=== PATIENT | male | born 2000 | race Asian ===

== ENCOUNTER 2022-04-10 19:22 | Inpatient (IN) | payer OTHER, SELFPAY ==
[2022-04-10 19:40] VITALS: BMI 27.3
[2022-04-10 21:10] VITALS: BP 123/58; PULSE 74; TEMP 36.6; O2SAT 100
[2022-04-10] MEDS: Mineral Oil/Petrolatum,White 106 GM Tube 1 APPL TOPICAL (21:48)
[2022-04-10] MEDS: QUEtiapine Fumarate 25 MG TABLET PO (21:48)
[2022-04-10] MEDS: risperiDONE 1 MG TABLET PO (21:48)
--- NOTE | 2022-04-11 00:36 | PC.ADMIT ---
admitted 04/10/22. was a referral from [facility]. nurse to nurse, collateral information obtained prior to admission. CV. dx: unspecified schizophrenia. reports + AH ''telling me to hurt others or myself'' when asked about safety to self and others stated ''I don't like hospitals but I feel safe here'' responded well to staff that patient had identified working with at [facility], ''I'm glad to see people here I know''
--- NOTE | 2022-04-11 01:02 | PC.ADMIT ---
Medication reconciliation done with a 24 hour Lora, verified was risperdal 1 mg po bid, seroquel 50 mg at HS. patient identified taking risperdal 1 mg daily only, 25 mg of seroquel daily (had reported he was instructed to take 25 mg po bid) also reported being on adderall xr 30 mg but was unable to verify with Lora. reports he also uses [facility] in [place] ''but they require a larger co pay'' [facility] closed at this time. reports regular use of marijuana. reports poor sleep. has noticeable dry skin/eczema-eucerin cream ordered. has not signed legal forms as patient was in bed.
[2022-04-11 08:45] VITALS: BP 138/75; PULSE 84; RESP 20; TEMP 36.3; O2SAT 100
[2022-04-11] MEDS: QUEtiapine Fumarate 25 MG TABLET PO (09:43)
[2022-04-11] MEDS: risperiDONE 1 MG TABLET PO (09:43)
[2022-04-11] MEDS: Nicotine 21 MG PATCH.TD24 TRANSDERMA (09:43)
[2022-04-11 10:00] LABS: Estimated Average Glucose 100 mg/dL; Hemoglobin A1c % 5.1 %
[2022-04-11 10:04] LABS: Cholesterol 132 mg/dL; HDL Cholesterol 39 mg/dL; LDL Cholesterol Calculated 85 mg/dl; Triglycerides 43 mg/dL
--- NOTE | 2022-04-11 11:49 | PM.IMCN ---
History of Present Illness Data of Consult Service Date: 04/11/22 Primary Care Provider: Unknown Physician HPI Reason for consult: Routine medical H&P. This is a 21 yo M who reports no PMH. He is admitted to M3. Medical consult requested for routine medical H&P per protocol. Patient is seen and examined in the exam room. They deny any medical complaints at this time. PMH/PSH -- denies both SH - reports tobacco use, reports prior EtOH use before starting seroquel; denies illicit substance use FH - denies Review of Systems Review of Systems: negative except HPI PMFSH Social History Household Members: Family Housing: House Do you presently have visiting nurse or other home services: No Patient Tobacco Use Status: Current everyday Tobacco user Tobacco use type: Cigarette Cigarette Packs Per Day: 0.5 Cigarettes Per Day: 10.0 Smoked in Last 30 Days: Yes e-Cigarette/Vaping Use: Never Used Patient Interested in Nicotine Replacement: Yes (requests gum) Second Hand Smoke Exposure: Yes Use of substances other than those prescribed or required for medical reasons: Yes Substance Use Type: Marijuana Substance Use Frequency: Daily Last Used Substance: Just Prior to Admission Currently Displaying Signs/Symptoms of Drug Intoxication Withdrawal: No Any prior treatment program specific to substance use: No Have you been hit, kicked, punched, or otherwise hurt by someone within the past year? If so, by whom?: No Do you feel safe in your current relationship?: No Current Relationship Is there a partner from a previous relationship who is making you feel unsafe now?: No Are you made to feel afraid or neglected: No Spiritual Healthcare Practices: none identified Orthodox Healthcare Practices: none identified Cultural Healthcare Practices: none identified Advance Directives: No Advance Directives Information Provided: No Do you have thoughts of harming others: None Do you have a plan to hurt others: No Plan Recently lost weight without trying: No How much weight loss: Not applicable Eating poorly because of decreased appetite: No Nutrition screen score: 0 Nutrition Risks: No Nutritional Risk Poor oral hygiene: No Meds Allergies Allergy/AdvReac Type Severity Reaction Status Date / Time No Known Allergies Allergy Unverified 08/11/20 19:05 [No Known Allergies*] Active Medications: Current Medications Acetaminophen (Acetaminophen 325 Mg Tablet) 650 mg PO Q6H PRN PRN Reason: Headache/Pain Mild Scale (1-3) Al Hydroxide/Mg Hydroxide (Magnesium Hydrox/Alum Hydrox 30 Ml Oral.Susp) 30 ml PO Q6H PRN PRN Reason: Heartburn/Nausea Amphetamine/Dextroamphetamine (Dextroamphetamine/Amphetamine Xr 10 Mg Cap.Er.24h) 30 mg PO DAILY [facility] Diphenhydramine HCl (Diphenhydramine Hcl 25 Mg Tablet) 50 mg PO Q4H PRN PRN Reason: agitation Haloperidol (Haloperidol 5 Mg Tablet) 5 mg PO Q4H PRN PRN Reason: agitation Hydroxyzine HCl (Hydroxyzine Hcl 25 Mg Tablet) 25 mg PO Q6H PRN PRN Reason: Anxiety Lorazepam (Lorazepam 1 Mg Tablet) 2 mg PO Q4H PRN PRN Reason: agitation Magnesium Hydroxide (Milk Of Magnesia 30 Ml Oral.Susp) 30 ml PO DAILY PRN PRN Reason: Constipation Multi-Ingred Cream/Lotion/Oil/Oint (Mineral Oil/Petrolatum,White 106 Gm Tube) 1 appl TOPICAL QID PRN; Protocol PRN Reason: eczema Last Admin: 04/10/22 21:48 Dose: 1 appl Documented by: Nicotine (Nicotine 21 Mg Patch.Td24) 21 mg TRANSDERMA DAILY [facility] Last Admin: 04/11/22 09:43 Dose: 21 mg Documented by: Nicotine Polacrilex (Nicotine Polacrilex 2 Mg Gum) 4 mg BUCCAL Q2H PRN PRN Reason: Nicotine Cravings Quetiapine Fumarate (Quetiapine Fumarate 25 Mg Tablet) 25 mg PO BID [facility] Last Admin: 04/11/22 09:43 Dose: 25 mg Documented by: Risperidone (Risperidone 1 Mg Tablet) 1 mg PO BID [facility] Last Admin: 04/11/22 09:43 Dose: 1 mg Documented by: Trazodone HCl (Trazodone Hcl 50 Mg Tablet) 50 mg PO BEDTIME PRN PRN Reason: Insomnia Home Medications Medication Instructions Recorded Confirmed Last Taken Type Adderall XR 30 mg PO DAILY 04/10/22 04/10/22 04/07/22 08:00 History quetiapine 25 mg tablet (Seroquel) 25 mg PO BID 04/10/22 04/10/22 04/09/22 21:00 History risperidone 1 mg tablet (Risperdal) 1 mg PO BID 04/10/22 04/10/22 04/09/22 21:00 History Physical Exam Vital Signs and Narrative: Vital Signs: Last Vital Signs Temp 97.4 F 04/11/22 08:45 Pulse 84 04/11/22 08:45 Resp 20 04/11/22 08:45 BP 138/75 04/11/22 08:45 Pulse Ox 100 04/11/22 08:45 BMI result Body Mass Index 27.3 Const: Other: General - no acute distress, appears comfortable Cardiovascular - regular rate and rhythm, S1-S2 Lungs - normal respiratory effort, clear to auscultation bilaterally, no wheezing Abdomen - soft, nontender, no rebound or guarding Extremities - no edema bilaterally Neuro - awake and alert, no focal deficits; cn 2-12 intact b/l Results Labs Labs: Laboratory Results - last 24 hr 04/11/22 04/11/22 09:16 09:16 Estimat Average Glucose 100 Hemoglobin A1c % 5.1 Triglycerides 43 Cholesterol 132 LDL Cholesterol, Calc 85 HDL Cholesterol 39 Assessment and Plan (1) Routine medical exam: Status: Acute Plan 21 yo M with no significant PMH, admitted to m3. Medical consultation sought for routine medical H&P. Patient has no active nor chronic medical issues. Patient has been counseled on age appropriate health maintenance as an outpatient. Continue care per primary team. Will sign off. Please re-consult if any issues arise.
[2022-04-11] MEDS: Nicotine Polacrilex 2 MG GUM 4 MG BUCCAL ×3 (13:20→23:07)
[2022-04-11] MEDS: hydrOXYzine HCL 25 MG TABLET PO (13:56)
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
[2022-04-11] MEDS: HaloperidoL 1 MG TABLET 3 MG PO (21:17)
[2022-04-11] MEDS: diphenhydrAMINE HCL 25 MG TABLET 50 MG PO (21:17)
[2022-04-11 21:19] VITALS: BP 143/65; PULSE 83; TEMP 36.8; O2SAT 98
[2022-04-12] MEDS: Mineral Oil/Petrolatum,White 106 GM Tube 1 APPL TOPICAL (06:03)
[2022-04-12 07:00] VITALS: BMI 28.3
[2022-04-12 08:15] VITALS: BP 130/60; PULSE 79; RESP 18; TEMP 36.6; O2SAT 100
[2022-04-12] MEDS: Nicotine 14 MG PATCH.TD24 TRANSDERMA (08:36)
[2022-04-12] MEDS: diphenhydrAMINE HCL 25 MG TABLET PO (08:37)
[2022-04-12] MEDS: HaloperidoL 1 MG TABLET 3 MG PO (08:37)
[2022-04-12] MEDS: Nicotine Polacrilex 2 MG GUM 4 MG BUCCAL (12:21)
--- NOTE | 2022-04-12 13:37 | P.PNPSI_ITS ---
Subjective Subjective Date of Service: 04/12/22 Reason For Visit: psychosis Interim History: pt calm, cooperative, denying all Sx. agreeable to increase haldol. doesn't want to be in the hospital any longer than he has to... concerned about what kind of a bill he will be facing after discharge. no other questions or concerns. per staff, anx/dep 3/10. denies SI/HI/AVH. napping. eating and sleeping well. Mental Status Exam Mental Status Exam Narrative: judy complexion, appropriately dressed and groomed. cooperative. no PMA/PMR. speech decr amount; nml rate, loudness, latency. thoughts linear. affect flexible. mood euthymic. denies SI/HI/AVH. Diagnostics Vital Signs (24Hr): Vital Signs - 24 hr 04/11/22 21:19 04/12/22 08:15 Temperature 98.2 F 97.9 F Pulse Rate 83 79 Respiratory Rate 18 Blood Pressure 143/65 H 130/60 Pulse Oximetry 98 100 BMI result Body Mass Index 28.3 Labs Labs: Laboratory Results - last 48 hr 04/11/22 04/11/22 09:16 09:16 Estimat Average Glucose 100 Hemoglobin A1c % 5.1 Triglycerides 43 Cholesterol 132 LDL Cholesterol, Calc 85 HDL Cholesterol 39 Medications Medications Current Medications Acetaminophen (Acetaminophen 325 Mg Tablet) 650 mg PO Q6H PRN PRN Reason: Headache/Pain Mild Scale (1-3) Al Hydroxide/Mg Hydroxide (Magnesium Hydrox/Alum Hydrox 30 Ml Oral.Susp) 30 ml PO Q6H PRN PRN Reason: Heartburn/Nausea Amphetamine/Dextroamphetamine (Dextroamphetamine/Amphetamine Xr 10 Mg Cap.Er.24h) 30 mg PO DAILY [facility] Last Admin: 04/11/22 16:02 Dose: Not Given Documented by: Benztropine Mesylate (Benztropine Mesylate 1 Mg Tablet) 1 mg PO Q6H PRN PRN Reason: EPS Diphenhydramine HCl (Diphenhydramine Hcl 25 Mg Tablet) 50 mg PO Q4H PRN PRN Reason: agitation Diphenhydramine HCl (Diphenhydramine Hcl 25 Mg Tablet) 25 mg PO DAILY [facility] Last Admin: 04/12/22 08:37 Dose: 25 mg Documented by: Diphenhydramine HCl (Diphenhydramine Hcl 25 Mg Tablet) 50 mg PO BEDTIME [facility] Last Admin: 04/11/22 21:17 Dose: 50 mg Documented by: Haloperidol (Haloperidol 5 Mg Tablet) 5 mg PO Q4H PRN PRN Reason: agitation Haloperidol (Haloperidol 1 Mg Tablet) 3 mg PO BID [facility] Last Admin: 04/12/22 08:37 Dose: 3 mg Documented by: Hydroxyzine HCl (Hydroxyzine Hcl 25 Mg Tablet) 25 mg PO Q6H PRN PRN Reason: Anxiety Last Admin: 04/11/22 13:56 Dose: 25 mg Documented by: Lorazepam (Lorazepam 1 Mg Tablet) 2 mg PO Q4H PRN PRN Reason: agitation Magnesium Hydroxide (Milk Of Magnesia 30 Ml Oral.Susp) 30 ml PO DAILY PRN PRN Reason: Constipation Multi-Ingred Cream/Lotion/Oil/Oint (Mineral Oil/Petrolatum,White 106 Gm Tube) 1 appl TOPICAL QID PRN; Protocol PRN Reason: eczema Last Admin: 04/12/22 06:03 Dose: 1 appl Documented by: Nicotine (Nicotine 14 Mg Patch.Td24) 14 mg TRANSDERMA DAILY [facility] Last Admin: 04/12/22 08:36 Dose: 14 mg Documented by: Nicotine Polacrilex (Nicotine Polacrilex 2 Mg Gum) 4 mg BUCCAL Q2H PRN PRN Reason: Nicotine Cravings Last Admin: 04/12/22 12:21 Dose: 4 mg Documented by: Trazodone HCl (Trazodone Hcl 50 Mg Tablet) 50 mg PO BEDTIME PRN PRN Reason: Insomnia Allergies Allergies Allergy/AdvReac Type Severity Reaction Status Date / Time No Known Allergies Allergy Unverified 08/11/20 19:05 [No Known Allergies*] Assessment & Plan Assessment & Plan (1) Schizophrenia, paranoid type: Status: Acute Code(s): F20.0 - Paranoid schizophrenia Plan DCed risperidone and seroquel 04/11. started haldol 3 mg BID with benadryl for EPS prophylaxis on 04/11. haldol dosing increased to 4 mg BID 04/12. I spent __20____ minutes with the patient and/or on the patient floor today, greater than?50% of which was spent counseling/coordinating care. Reason for contiued inpatient stay Substantial Risk for: harm to self, harm to others, inability to function and rapid decompensation
[2022-04-12 22:12] VITALS: BP 128/58; PULSE 70; RESP 16; TEMP 36.4; O2SAT 97
[2022-04-12] MEDS: diphenhydrAMINE HCL 25 MG TABLET 50 MG PO (22:21)
[2022-04-12] MEDS: HaloperidoL 1 MG TABLET 4 MG PO (22:21)
[2022-04-13 10:30] VITALS: BP 142/64; PULSE 90; RESP 18; TEMP 35.9; O2SAT 100
[2022-04-13] MEDS: Nicotine 14 MG PATCH.TD24 TRANSDERMA (10:48)
[2022-04-13] MEDS: HaloperidoL 1 MG TABLET 4 MG PO (10:49)
[2022-04-13] MEDS: diphenhydrAMINE HCL 25 MG TABLET PO (10:50)
[2022-04-13] MEDS: LORazepam 2 MG/ML VIAL 1 MG IM (12:22)
[2022-04-13] MEDS: Benztropine Mesylate 2 MG/2 ML VIAL 1 MG IM (12:23)
--- NOTE | 2022-04-13 12:35 | PC.NURSE ---
At approximately 12:15 patient presented unable to retract his tongue. Doctor Cristopher Santamaria was notified and ordered IM ativan 1 mg and IM 1 mg cogentin. Patient received IMs as ordered. Vital signs were T: 97.9, HR: 87, RR: 18, BP: 155/86. Breathing was even and non labored. Patient reported That was very scary . Shortly after patient reported almost complete relief of symptoms. Patient able to eat and drink. Patient educated on symptoms to report to RN.
--- NOTE | 2022-04-13 13:17 | PC.NURSE ---
Patient reports that all the symptoms are gone now since receiving IMs as ordered for inability to retract tongue. Patient is able to eat and drink. Respirations are even and non labored. Vital signs are stable at HR: 86, O2: 100%, RR: 17, BP: 137/87. Education was reinforced with patient of signs and symptoms to report to RN.
--- NOTE | 2022-04-13 14:43 | PC.NURSE ---
Patient continues to report that all the symptoms are gone now since receiving IMs as ordered for inability to retract tongue. Patient continues to be able to eat and drink. Respirations are even and non labored. Vital signs are stable at HR: 79, O2: 99%, RR: 17, BP: 137/63. Education was reinforced with patient of signs and symptoms to report to Nurse.
--- NOTE | 2022-04-13 16:02 | P.PNPSI_ITS ---
Subjective Subjective Date of Service: 04/13/22 Reason For Visit: psychosis Interim History: pt calm, cooperative. discuss haldol dosing and potential side effects. pt notes he has h/o dystonia with seroquel or risperidone. he then observes perhaps his tongue is feeling stuck and he may be having a dystonic rxn now... he was referred to nursing to start cogentin PO. it was observed he was unable to retract his tongue and IM ativan and cogentin were given with good effect. pt agreed to have cogentin added to regimen, 1 mg BID. planned to keep haldol at 4 BID for time being. no signs of psychosis today. per staff, dep 0. anx 01/04. brighter. attending groups. walking the halls listening to headphones. slept well. some paranoia about roommate staring at him while he slept. also, mentioned in yesterday's group being followed by FBI in the present. Mental Status Exam Mental Status Exam Narrative: judy complexion, appropriately dressed and groomed. cooperative. no PMA/PMR. speech nml amount, rate, loudness, latency. thoughts linear. affect flexible. mood euthymic. no SI/HI/AVH expressed. Diagnostics Vital Signs (24Hr): Vital Signs - 24 hr 04/12/22 22:12 04/13/22 10:30 Temperature 97.5 F 96.7 F L Pulse Rate 70 90 Respiratory Rate 16 18 Blood Pressure 128/58 L 142/64 H Pulse Oximetry 97 100 BMI result Body Mass Index 28.3 Medications Medications Current Medications Acetaminophen (Acetaminophen 325 Mg Tablet) 650 mg PO Q6H PRN PRN Reason: Headache/Pain Mild Scale (1-3) Al Hydroxide/Mg Hydroxide (Magnesium Hydrox/Alum Hydrox 30 Ml Oral.Susp) 30 ml PO Q6H PRN PRN Reason: Heartburn/Nausea Amphetamine/Dextroamphetamine (Dextroamphetamine/Amphetamine Xr 10 Mg Cap.Er.24h) 30 mg PO DAILY [facility] Last Admin: 04/11/22 16:02 Dose: Not Given Documented by: Benztropine Mesylate (Benztropine Mesylate 1 Mg Tablet) 1 mg PO Q6H PRN PRN Reason: EPS Benztropine Mesylate (Benztropine Mesylate 1 Mg Tablet) 1 mg PO BID [facility] Last Admin: 04/13/22 12:25 Dose: Not Given Documented by: Diphenhydramine HCl (Diphenhydramine Hcl 25 Mg Tablet) 50 mg PO Q4H PRN PRN Reason: agitation Diphenhydramine HCl (Diphenhydramine Hcl 25 Mg Tablet) 25 mg PO DAILY [facility] Last Admin: 04/13/22 10:50 Dose: 25 mg Documented by: Diphenhydramine HCl (Diphenhydramine Hcl 25 Mg Tablet) 50 mg PO BEDTIME [facility] Last Admin: 04/12/22 22:21 Dose: 50 mg Documented by: Haloperidol (Haloperidol 5 Mg Tablet) 5 mg PO BID [facility] Haloperidol (Haloperidol 1 Mg Tablet) 4 mg PO Q4H PRN PRN Reason: agitation Hydroxyzine HCl (Hydroxyzine Hcl 25 Mg Tablet) 25 mg PO Q6H PRN PRN Reason: Anxiety Last Admin: 04/11/22 13:56 Dose: 25 mg Documented by: Lorazepam (Lorazepam 1 Mg Tablet) 2 mg PO Q4H PRN PRN Reason: agitation Magnesium Hydroxide (Milk Of Magnesia 30 Ml Oral.Susp) 30 ml PO DAILY PRN PRN Reason: Constipation Multi-Ingred Cream/Lotion/Oil/Oint (Mineral Oil/Petrolatum,White 106 Gm Tube) 1 appl TOPICAL QID PRN; Protocol PRN Reason: eczema Last Admin: 04/12/22 06:03 Dose: 1 appl Documented by: Nicotine (Nicotine 14 Mg Patch.Td24) 14 mg TRANSDERMA DAILY [facility] Last Admin: 04/13/22 10:48 Dose: 14 mg Documented by: Nicotine Polacrilex (Nicotine Polacrilex 2 Mg Gum) 4 mg BUCCAL Q2H PRN PRN Reason: Nicotine Cravings Last Admin: 04/12/22 12:21 Dose: 4 mg Documented by: Trazodone HCl (Trazodone Hcl 50 Mg Tablet) 50 mg PO BEDTIME PRN PRN Reason: Insomnia Allergies Allergies Allergy/AdvReac Type Severity Reaction Status Date / Time No Known Allergies Allergy Unverified 08/11/20 19:05 [No Known Allergies*] Assessment & Plan Assessment & Plan (1) Schizophrenia, paranoid type: Status: Acute Code(s): F20.0 - Paranoid schizophrenia Plan DCed risperidone and seroquel 04/11. started haldol 3 mg BID with benadryl for EPS prophylaxis on 04/11. haldol dosing increased to 4 mg BID 04/12. appeared to develop dystonia involving tongue this morning, given ativan 1 mg and cogentin 1 mg to good effect. benadryl DCed at pt request, cogentin 1 BID started. stabilize. planning for discharge early next week. I spent ___35___ minutes with the patient and/or on the patient floor today, greater than?50% of which was spent counseling/coordinating care. Reason for contiued inpatient stay Substantial Risk for: harm to self, harm to others, inability to function and rapid decompensation
[2022-04-13] MEDS: Mineral Oil/Petrolatum,White 106 GM Tube 1 APPL TOPICAL (17:55)
[2022-04-13 18:00] VITALS: BP 123/58; PULSE 70; RESP 16; TEMP 36.7; O2SAT 98
[2022-04-13] MEDS: diphenhydrAMINE HCL 25 MG TABLET 50 MG PO (21:07)
[2022-04-13] MEDS: Benztropine Mesylate 1 MG TABLET PO (21:07)
[2022-04-13] MEDS: HaloperidoL 5 MG TABLET PO (21:07)
[2022-04-14 09:12] VITALS: BP 137/62; PULSE 85; RESP 18; TEMP 36.2; O2SAT 100
[2022-04-14] MEDS: Benztropine Mesylate 1 MG TABLET PO ×2 (09:28→21:21)
[2022-04-14] MEDS: HaloperidoL 5 MG TABLET PO ×2 (09:28→21:21)
[2022-04-14] MEDS: Nicotine 14 MG PATCH.TD24 TRANSDERMA (09:28)
[2022-04-14] MEDS: diphenhydrAMINE HCL 25 MG TABLET PO (09:28)
[2022-04-14] MEDS: Nicotine Polacrilex 2 MG GUM 4 MG BUCCAL (12:29)
--- NOTE | 2022-04-14 15:47 | HO.PSYCHPN ---
Subjective Subjective Date of Service: 04/14/22 Reason For Visit: psychosis Subjective Notes: 3 Day Interim History: overall reports things are going well. Did have a dystonic reaction to Haldol yesterday but felt positive that Cogentin has been ordered and he has not experienced symptoms since. Reports that Haldol has been helpful regarding auditory hallucinations and suicidal thoughts. Reports not having any within the last day or so. Reports feeling overall less overwhelmed and anxious. Mood brighter. Sleep okay. Hopeful that he can have treaters when discharged and an in person therapist. Reports preferring this over zoom. three-day notice expires Saturday04/18/2022 Medication Compliance: Yes Side effects from medications: No (cogentin preventing same) Attending Groups: Yes Review of Systems Acute medical concerns: No Review of Systems Review of Systems Yes all other systems are reviewed and are negative Mental Status Exam Mental Status Exam Narrative: pleasant and engaged. Organized. Euthymic. No SI. No HI. No psychosis. Insight and judgment good Diagnostics Vital Signs (24Hr): Vital Signs - 24 hr 04/13/22 18:00 04/14/22 09:12 Temperature 98.1 F 97.2 F Pulse Rate 70 85 Respiratory Rate 16 18 Blood Pressure 123/58 L 137/62 Pulse Oximetry 98 100 BMI result Body Mass Index 28.3 Medications Medications Current Medications Acetaminophen (Acetaminophen 325 Mg Tablet) 650 mg PO Q6H PRN PRN Reason: Headache/Pain Mild Scale (1-3) Al Hydroxide/Mg Hydroxide (Magnesium Hydrox/Alum Hydrox 30 Ml Oral.Susp) 30 ml PO Q6H PRN PRN Reason: Heartburn/Nausea Amphetamine/Dextroamphetamine (Dextroamphetamine/Amphetamine Xr 10 Mg Cap.Er.24h) 30 mg PO DAILY [facility] Last Admin: 04/11/22 16:02 Dose: Not Given Documented by: Benztropine Mesylate (Benztropine Mesylate 1 Mg Tablet) 1 mg PO Q6H PRN PRN Reason: EPS Benztropine Mesylate (Benztropine Mesylate 1 Mg Tablet) 1 mg PO BID [facility] Last Admin: 04/14/22 09:28 Dose: 1 mg Documented by: Diphenhydramine HCl (Diphenhydramine Hcl 25 Mg Tablet) 50 mg PO Q4H PRN PRN Reason: agitation Diphenhydramine HCl (Diphenhydramine Hcl 25 Mg Tablet) 25 mg PO DAILY [facility] Last Admin: 04/14/22 09:28 Dose: 25 mg Documented by: Diphenhydramine HCl (Diphenhydramine Hcl 25 Mg Tablet) 50 mg PO BEDTIME [facility] Last Admin: 04/13/22 21:07 Dose: 50 mg Documented by: Haloperidol (Haloperidol 5 Mg Tablet) 5 mg PO BID [facility] Last Admin: 04/14/22 09:28 Dose: 5 mg Documented by: Haloperidol (Haloperidol 1 Mg Tablet) 4 mg PO Q4H PRN PRN Reason: agitation Hydroxyzine HCl (Hydroxyzine Hcl 25 Mg Tablet) 25 mg PO Q6H PRN PRN Reason: Anxiety Last Admin: 04/11/22 13:56 Dose: 25 mg Documented by: Lorazepam (Lorazepam 1 Mg Tablet) 2 mg PO Q4H PRN PRN Reason: agitation Magnesium Hydroxide (Milk Of Magnesia 30 Ml Oral.Susp) 30 ml PO DAILY PRN PRN Reason: Constipation Multi-Ingred Cream/Lotion/Oil/Oint (Mineral Oil/Petrolatum,White 106 Gm Tube) 1 appl TOPICAL QID PRN; Protocol PRN Reason: eczema Last Admin: 04/13/22 17:55 Dose: 1 appl Documented by: Nicotine (Nicotine 14 Mg Patch.Td24) 14 mg TRANSDERMA DAILY [facility] Last Admin: 04/14/22 09:28 Dose: 14 mg Documented by: Nicotine Polacrilex (Nicotine Polacrilex 2 Mg Gum) 4 mg BUCCAL Q2H PRN PRN Reason: Nicotine Cravings Last Admin: 04/14/22 12:29 Dose: 4 mg Documented by: Trazodone HCl (Trazodone Hcl 50 Mg Tablet) 50 mg PO BEDTIME PRN PRN Reason: Insomnia Allergies Allergies Allergy/AdvReac Type Severity Reaction Status Date / Time No Known Allergies Allergy Unverified 08/11/20 19:05 [No Known Allergies*] Assessment & Plan Assessment & Plan (1) Schizophrenia, paranoid type: Status: Acute Code(s): F20.0 - Paranoid schizophrenia Plan DCed risperidone and seroquel 04/11. started haldol 3 mg BID with benadryl for EPS prophylaxis on 04/11. haldol dosing increased to 4 mg BID 04/12. appeared to develop dystonia involving tongue this morning, given ativan 1 mg and cogentin 1 mg to good effect. benadryl DCed at pt request, cogentin 1 BID started. stabilize. planning for discharge early next week. 04/14/2022: No changes to primary team treatment plan. Three-day notice expires Saturday04/18/2022 I spent minutes with the patient and/or on the patient floor today, greater than?50% of which was spent counseling/coordinating care. Reason for contiued inpatient stay Substantial Risk for: harm to self
[2022-04-14] MEDS: Mineral Oil/Petrolatum,White 106 GM Tube 1 APPL TOPICAL (16:07)
[2022-04-14 20:57] VITALS: BP 120/54; PULSE 67; RESP 16; TEMP 36.3; O2SAT 98
[2022-04-14] MEDS: diphenhydrAMINE HCL 25 MG TABLET 50 MG PO (21:21)
[2022-04-15] MEDS: Benztropine Mesylate 1 MG TABLET PO ×2 (08:19→22:22)
[2022-04-15] MEDS: diphenhydrAMINE HCL 25 MG TABLET PO (08:19)
[2022-04-15] MEDS: HaloperidoL 5 MG TABLET PO ×2 (08:20→22:22)
[2022-04-15] MEDS: Nicotine 14 MG PATCH.TD24 TRANSDERMA (08:25)
[2022-04-15 08:30] VITALS: BP 135/57; PULSE 69; RESP 18; TEMP 36.6; O2SAT 97
--- NOTE | 2022-04-15 15:24 | HO.PSYCHPN ---
Subjective Subjective Date of Service: 04/15/22 Reason For Visit: psychosis Interim History: Continues to report that things are going well. No side effects over the last 2 days. No psychosis. Feels that mood is good. Sleep energy and appetite okay. Remains hopeful he can have treaters when discharged and an in person therapist. Reports preferring this over zoom. three-day notice expires Saturday04/18/2022 Medication Compliance: Yes Side effects from medications: No Attending Groups: Yes Review of Systems Acute medical concerns: No Review of Systems Review of Systems Yes all other systems are reviewed and are negative Mental Status Exam Mental Status Exam Narrative: pleasant and engaged. Organized. Euthymic. No SI. No HI. No psychosis. Insight and judgment good Diagnostics Vital Signs (24Hr): Vital Signs - 24 hr 04/14/22 20:57 04/15/22 08:30 Temperature 97.4 F 97.8 F Pulse Rate 67 69 Respiratory Rate 16 18 Blood Pressure 120/54 L 135/57 L Pulse Oximetry 98 97 BMI result Body Mass Index 28.3 Medications Medications Current Medications Acetaminophen (Acetaminophen 325 Mg Tablet) 650 mg PO Q6H PRN PRN Reason: Headache/Pain Mild Scale (1-3) Al Hydroxide/Mg Hydroxide (Magnesium Hydrox/Alum Hydrox 30 Ml Oral.Susp) 30 ml PO Q6H PRN PRN Reason: Heartburn/Nausea Amphetamine/Dextroamphetamine (Dextroamphetamine/Amphetamine Xr 10 Mg Cap.Er.24h) 30 mg PO DAILY [facility] Last Admin: 04/11/22 16:02 Dose: Not Given Documented by: Benztropine Mesylate (Benztropine Mesylate 1 Mg Tablet) 1 mg PO Q6H PRN PRN Reason: EPS Benztropine Mesylate (Benztropine Mesylate 1 Mg Tablet) 1 mg PO BID [facility] Last Admin: 04/15/22 08:19 Dose: 1 mg Documented by: Diphenhydramine HCl (Diphenhydramine Hcl 25 Mg Tablet) 50 mg PO Q4H PRN PRN Reason: agitation Diphenhydramine HCl (Diphenhydramine Hcl 25 Mg Tablet) 25 mg PO DAILY [facility] Last Admin: 04/15/22 08:19 Dose: 25 mg Documented by: Diphenhydramine HCl (Diphenhydramine Hcl 25 Mg Tablet) 50 mg PO BEDTIME [facility] Last Admin: 04/14/22 21:21 Dose: 50 mg Documented by: Haloperidol (Haloperidol 5 Mg Tablet) 5 mg PO BID [facility] Last Admin: 04/15/22 08:20 Dose: 5 mg Documented by: Haloperidol (Haloperidol 1 Mg Tablet) 4 mg PO Q4H PRN PRN Reason: agitation Hydroxyzine HCl (Hydroxyzine Hcl 25 Mg Tablet) 25 mg PO Q6H PRN PRN Reason: Anxiety Last Admin: 04/11/22 13:56 Dose: 25 mg Documented by: Lorazepam (Lorazepam 1 Mg Tablet) 2 mg PO Q4H PRN PRN Reason: agitation Magnesium Hydroxide (Milk Of Magnesia 30 Ml Oral.Susp) 30 ml PO DAILY PRN PRN Reason: Constipation Multi-Ingred Cream/Lotion/Oil/Oint (Mineral Oil/Petrolatum,White 106 Gm Tube) 1 appl TOPICAL QID PRN; Protocol PRN Reason: eczema Last Admin: 04/14/22 16:07 Dose: 1 appl Documented by: Nicotine (Nicotine 14 Mg Patch.Td24) 14 mg TRANSDERMA DAILY [facility] Last Admin: 04/15/22 08:25 Dose: 14 mg Documented by: Nicotine Polacrilex (Nicotine Polacrilex 2 Mg Gum) 4 mg BUCCAL Q2H PRN PRN Reason: Nicotine Cravings Last Admin: 04/14/22 12:29 Dose: 4 mg Documented by: Trazodone HCl (Trazodone Hcl 50 Mg Tablet) 50 mg PO BEDTIME PRN PRN Reason: Insomnia Allergies Allergies Allergy/AdvReac Type Severity Reaction Status Date / Time No Known Allergies Allergy Unverified 08/11/20 19:05 [No Known Allergies*] Assessment & Plan Assessment & Plan (1) Schizophrenia, paranoid type: Status: Acute Code(s): F20.0 - Paranoid schizophrenia Plan DCed risperidone and seroquel 04/11. started haldol 3 mg BID with benadryl for EPS prophylaxis on 04/11. haldol dosing increased to 4 mg BID 04/12. appeared to develop dystonia involving tongue this morning, given ativan 1 mg and cogentin 1 mg to good effect. benadryl DCed at pt request, cogentin 1 BID started. stabilize. planning for discharge early next week. 04/15/2022: No changes to primary team treatment plan. Three-day notice expires Saturday04/18/2022 I spent minutes with the patient and/or on the patient floor today, greater than?50% of which was spent counseling/coordinating care. Reason for contiued inpatient stay Substantial Risk for: rapid decompensation
[2022-04-15 22:12] VITALS: BP 123/60; PULSE 73; RESP 16; TEMP 36.6; O2SAT 97
[2022-04-15] MEDS: diphenhydrAMINE HCL 25 MG TABLET 50 MG PO (22:22)
[2022-04-16 08:12] VITALS: BP 125/87; PULSE 92; RESP 17; TEMP 36.7; O2SAT 100
[2022-04-16] MEDS: diphenhydrAMINE HCL 25 MG TABLET PO (08:16)
[2022-04-16] MEDS: Nicotine 14 MG PATCH.TD24 TRANSDERMA (08:16)
[2022-04-16] MEDS: HaloperidoL 5 MG TABLET PO ×2 (08:16→21:33)
[2022-04-16] MEDS: Benztropine Mesylate 1 MG TABLET PO ×2 (08:16→21:33)
[2022-04-16] MEDS: Mineral Oil/Petrolatum,White 106 GM Tube 1 APPL TOPICAL (13:10)
--- NOTE | 2022-04-16 15:44 | P.PNPSI_ITS ---
Subjective Subjective Date of Service: 04/16/22 Reason For Visit: psychosis Interim History: calm, cooperative, reasonably well related, some thought disorganization apparent. happy to hear he will be discharged tomorrow. states he is sleeping well. mood is unpredictable. states, i know i'll be safe at home with my parents. denies any further dystonic rxns or other side effects. denies SI/HI/AVH. sates he is not concerned about the FBI, he figures if they wanted to interview him they would have just done it by now. per staff, easily engaged. no SI/HI/AVH. no delusions. improved range of affect. sleeping and eating well. D/C tomorrow. Mental Status Exam Mental Status Exam Narrative: judy complexion, appropriately dressed and groomed. cooperative. no PMA/PMR. speech nml amount, rate, loudness, latency. thoughts mildly disorganized. affect flexible. mood unpredictable. no SI/HI/AVH. denies paranoid thoughts about the FBI. Diagnostics Vital Signs (24Hr): Vital Signs - 24 hr 04/15/22 22:12 04/16/22 08:12 Temperature 97.8 F 98.1 F Pulse Rate 73 92 Respiratory Rate 16 17 Blood Pressure 123/60 125/87 Pulse Oximetry 97 100 BMI result Body Mass Index 28.3 Medications Medications Current Medications Acetaminophen (Acetaminophen 325 Mg Tablet) 650 mg PO Q6H PRN PRN Reason: Headache/Pain Mild Scale (1-3) Al Hydroxide/Mg Hydroxide (Magnesium Hydrox/Alum Hydrox 30 Ml Oral.Susp) 30 ml PO Q6H PRN PRN Reason: Heartburn/Nausea Amphetamine/Dextroamphetamine (Dextroamphetamine/Amphetamine Xr 10 Mg Cap.Er.24h) 30 mg PO DAILY [facility] Last Admin: 04/11/22 16:02 Dose: Not Given Documented by: Benztropine Mesylate (Benztropine Mesylate 1 Mg Tablet) 1 mg PO Q6H PRN PRN Reason: EPS Benztropine Mesylate (Benztropine Mesylate 1 Mg Tablet) 1 mg PO BID [facility] Last Admin: 04/16/22 08:16 Dose: 1 mg Documented by: Diphenhydramine HCl (Diphenhydramine Hcl 25 Mg Tablet) 50 mg PO Q4H PRN PRN Reason: agitation Haloperidol (Haloperidol 5 Mg Tablet) 5 mg PO BID [facility] Last Admin: 04/16/22 08:16 Dose: 5 mg Documented by: Haloperidol (Haloperidol 1 Mg Tablet) 4 mg PO Q4H PRN PRN Reason: agitation Hydroxyzine HCl (Hydroxyzine Hcl 25 Mg Tablet) 25 mg PO Q6H PRN PRN Reason: Anxiety Last Admin: 04/11/22 13:56 Dose: 25 mg Documented by: Magnesium Hydroxide (Milk Of Magnesia 30 Ml Oral.Susp) 30 ml PO DAILY PRN PRN Reason: Constipation Multi-Ingred Cream/Lotion/Oil/Oint (Mineral Oil/Petrolatum,White 106 Gm Tube) 1 appl TOPICAL QID PRN; Protocol PRN Reason: eczema Last Admin: 04/16/22 13:10 Dose: 1 appl Documented by: Nicotine (Nicotine 14 Mg Patch.Td24) 14 mg TRANSDERMA DAILY [facility] Last Admin: 04/16/22 08:16 Dose: 14 mg Documented by: Nicotine Polacrilex (Nicotine Polacrilex 2 Mg Gum) 4 mg BUCCAL Q2H PRN PRN Reason: Nicotine Cravings Last Admin: 04/14/22 12:29 Dose: 4 mg Documented by: Trazodone HCl (Trazodone Hcl 50 Mg Tablet) 50 mg PO BEDTIME PRN PRN Reason: Insomnia Allergies Allergies Allergy/AdvReac Type Severity Reaction Status Date / Time No Known Allergies Allergy Unverified 08/11/20 19:05 [No Known Allergies*] Assessment & Plan Assessment & Plan (1) Schizophrenia, paranoid type: Status: Acute Code(s): F20.0 - Paranoid schizophrenia Plan DCed risperidone and seroquel 04/11. started haldol 3 mg BID with benadryl for EPS prophylaxis on 04/11. haldol dosing increased to 4 mg BID 04/12. appeared to develop dystonia involving tongue 04/13, given ativan 1 mg and cogentin 1 mg to good effect. benadryl DCed at pt request, cogentin 1 BID started. stabilize. planning for discharge early next week. 04/15/2022: No changes to primary team treatment plan. Three-day notice expires Saturday04/18/2022. 04/16: stable, improved. DC tomorrow. I spent ___20___ minutes with the patient and/or on the patient floor today, greater than?50% of which was spent counseling/coordinating care. Reason for contiued inpatient stay Substantial Risk for: harm to self, harm to others, inability to function and rapid decompensation
[2022-04-16 20:35] VITALS: BP 134/61; PULSE 71; RESP 18; TEMP 36.2; O2SAT 99
[2022-04-17] MEDS: Benztropine Mesylate 1 MG TABLET PO (08:16)
[2022-04-17] MEDS: HaloperidoL 5 MG TABLET PO (08:16)
[2022-04-17 09:00] VITALS: BP 127/60; PULSE 63; RESP 18; TEMP 36.4; O2SAT 100
[2022-04-17] MEDS: Mineral Oil/Petrolatum,White 106 GM Tube 1 APPL TOPICAL (09:52)
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
--- NOTE | 2022-04-17 10:40 | PC.NURSE ---
Patient alert, oriented. Reviewed discharge instructions, medications w/ patient. Patient verbalized understanding of instructions. Patient denied SI/HI, patient denies AH/VH. Patient denied any concerns or questions, reports he is eager to get home and 'catch up with social stuff.' Patient states brother will be coming to drive him home, states he is currently living with his parents.
== END 2022-04-17 10:59 | disposition home or self-care (01) | DRG 750 ==
PROVIDERS: Psychiatry & Neurology Psychiatry; Admitting Provider Psychiatry & Neurology Psychiatry; Visit Provider Psychiatry & Neurology Psychiatry
DX: F20.0 Paranoid schizophrenia (principal); R45.851 Suicidal ideations; F17.210 Nicotine dependence, cigarettes, uncomplicated; Z71.6 Tobacco abuse counseling; Z79.899 Other long term (current) drug therapy
CPT/HCPCS: 36415; 80061; 83036; J0515; J2060; Q0163

== ENCOUNTER 2023-09-17 15:28 | Inpatient (IN) | payer OTHER, SELFPAY ==
--- OUTSIDE RECORDS SUMMARY | 2023-09-17 14:32 | XMS_ITS | Continuity of Care Document ---
Author Name Unknown Organization [facility] ter Address [address] [place] [id number] Care Team Providers Care Silk Soaker Name Role Phone Emile Cuellar MD Primary Care Physician Encounter [facility] Date(s): 04/08/22 - 04/10/[address] [address]- Discharge Disposition: Transfer to [facility] Facility Attending Physician: Lavelle Coleman DO Admitting Physician: Lavelle Coleman DO Referring Physician: Not on Staff, Referring MD Allergies, Adverse Reactions, Alerts No Known Allergies Medications QUEtiapine 25 mg oral tablet 50 mg, 2, tablet, By Mouth, Daily at bedtime, # 120 tablet, Refills 0, Maintenance, 04/08/22 7:16:00 EDT, Partial fill upon patient request if the prescription is for a schedule II opioid drug. Start Date: 04/08/22 Status: Ordered RisperDAL 1 mg oral tablet 1 mg, 1, tablet, By Mouth, 2 times a day, # 60 tablet, Refills 0, Tot. Refills 0, Maintenance, 04/26/20 8:28:00 EDT, Print Requisition Start Date: 04/26/20 Status: Ordered Problem List Condition Effective Dates Status Health Status Inform ant Asthma(Confirmed) Active Atopic dermatitis(Confirmed) Active Vital Signs Most recent to oldest [Reference Range]: 1 2 3 Oxygen Saturation [94-100 %] 100 % (04/10/22 2:02 PM) 100 % (04/10/22 6:30 AM) 99 % (04/09/22 8:28 PM) Pulse Rate [55-90 bpm] 64 bpm (04/10/22 2:02 PM) 81 bpm (04/10/22 6:30 AM) 75 bpm (04/09/22 8:28 PM) Blood Pressure [90-138/55-84 mm Hg] 132/50mm Hg (5/17/22 2:02 PM) 115/68mm Hg (04/10/22 6:30 AM) 131/54mm Hg (04/09/22 8:28 PM) Respiratory Rate [16-30 br/min] 18 br/min (04/10/22 2:02 PM) 16 br/min (04/10/22 6:30 AM) 18 br/min (04/09/22 8:28 PM) Temperature [96.8-100.4 DegF] 97.1 DegF (04/10/22 6:30 AM) 97.9 DegF (04/09/22 8:28 PM) 98.2 DegF (04/09/22 12:58 PM) Mode of Delivery (Oxygen) Room air (04/10/22 2:02 PM) Room air (04/10/22 6:30 AM) Room air (04/09/22 8:28 PM) Blood pressure sites Arm, right (04/10/22 2:02 PM) Arm, right (04/10/22 6:30 AM) Arm, left (04/09/22 8:17 AM) Temperature Route Oral (04/10/22 6:30 AM) Oral (04/09/22 8:28 PM) Oral (04/09/22 12:58 PM)
--- OUTSIDE RECORDS SUMMARY | 2023-09-17 14:32 | XMS_ITS | Continuity of Care Document ---
Author Name Unknown Organization [facility] ter Address [address] [place] [id number]- Care Team Providers Care Scale Model Maker Name Role Phone Emile Cuellar MD Primary Care Physician Encounter [facility] [place] Date(s): 04/19/20 - 04/20/[address] [address]- [facility] Discharge Disposition: Transfer to [facility] Facility Attending Physician: Ramesh Urban MD Admitting Physician: Ramesh Urban MD Referring Physician: Not on Staff, Referring MD Allergies, Adverse Reactions, Alerts Substance Reaction Severity Status NKA Active Medications clonazePAM 0.5 mg oral tablet 0.5 tablet = 0.25 mg, By Mouth, Daily, 0 Refills, Maintenance, 04/20/20 2:43:00 EDT, Tablet Start Date: 04/20/20 Status: Ordered desonide topical 0.05% ointment 60g, Topically, 2 times a day, 60, Gm, 1, 4, 02/26/07 10:15:30, 01/29/07 9:28:09, Apply bid rub in well for mild eczema., Print VINCENT Number, ADS OPPTHS, [id number], Constant Indicator Start Date: 01/29/07 Stop Date: 06/28/07 Status: Ordered desonide topical 0.05% ointment 60g, Topically, 2 times a day, 60, Gm, 1, 1, 01/29/07 9:41:12, Apply bid rub in well for mild eczema., Print VINCENT Number, ADS OPPTHS, [id number], Constant Indicator Start Date: 01/29/07 Stop Date: 03/30/07 Status: Ordered divalproex sodium 250 mg oral tablet, extended release 1 tablet = 250 mg, By Mouth, 2 times a day, 0 Refills, Maintenance, 04/20/20 2:42:00 EDT, ER Tablet Start Date: 04/20/20 Status: Ordered Olanzapine = 10 mg, By Mouth, Daily, 0 Refills, Maintenance, 04/20/20 2:45:00 EDT Start Date: 04/20/20 Status: Ordered Triamcinolone 0.1% ointment See Instructions, 80, Gm, 1, 2, 3, 02/26/07 10:15:50, 01/29/07 9:27:56, Apply bid rub in well for severe eczema, Print VINCENT Number, ADS OPPTHS, Constant Indicator Start Date: 01/29/07 Status: Ordered Triamcinolone 0.1% ointment See Instructions, 80, Gm, 1, 1, 01/29/07 9:41:02, Apply bid rub in well for severe eczema, Print VINCENT Number, ADS OPPTHS, Constant Indicator Start Date: 01/29/07 Status: Ordered Problem List Condition Effective Dates Status Health Status Inform ant Atopic dermatitis(Confirmed) Active Vital Signs Most recent to oldest [Reference Range]: 1 2 3 Oxygen Saturation [94-100 %] 100 % (04/20/20 11:08 AM) 99 % (04/20/20 1:59 AM) 100 % (04/19/20 7:56 PM) Pulse Rate [55-90 bpm] 74 bpm (04/20/20 11:08 AM) 65 bpm (04/20/20 1:59 AM) 77 bpm (04/19/20 7:56 PM) Blood Pressure [90-138/55-84 mm Hg] 120/65mm Hg (04/20/20 11:08 AM) 118/57mm Hg (04/20/20 1:59 AM) 129/65mm Hg (04/19/20 7:56 PM) Respiratory Rate [16-30 br/min] 18 br/min (04/20/20 11:08 AM) 16 br/min (04/20/20 1:59 AM) 18 br/min (04/19/20 7:56 PM) Temperature [96.8-100.4 DegF] 97.4 DegF (04/20/20 1:59 AM) 97.4 DegF (04/19/20 10:48 AM) Mode of Delivery (Oxygen) Room air (04/20/20 11:08 AM) Room air (04/20/20 1:59 AM) Room air (04/19/20 7:56 PM) Blood pressure sites Arm, right (04/20/20 11:08 AM) Arm, right (04/20/20 1:59 AM) Arm, left (04/19/20 7:56 PM) Temperature Route Oral (04/20/20 1:59 AM) Oral (04/19/20 10:48 AM)
--- OUTSIDE RECORDS SUMMARY | 2023-09-17 14:32 | XMS_ITS | Continuity of Care Document ---
Author Name Unknown Organization [facility] ter Address [address] [place] [id number]- Care Team Providers Care Cellophane Wrapping Examiner Name Role Phone Emile Cuellar MD Primary Care Physician Encounter [facility] [place] [place] Date(s): 05/04/22 - 05/04/[address] [address]- Encounter Diagnosis Anaphylaxis(Final) - 05/04/22 Discharge Disposition: A-D/C Home Attending Physician: Lavelle Coleman DO Admitting Physician: Lavelle Coleman DO Referring Physician: Not on Staff, Referring MD Allergies, Adverse Reactions, Alerts No Known Allergies Medications EpiPen 2-Pedro 0.3 mg injectable kit = 0.3 mg, Intramuscular, Once, # 1 kit, 1 Refills, Soft Stop, 05/04/22 11:16:00 EDT, [id number], Partial fill upon patient request if the prescription is for a schedule II opioid drug. Start Date: 05/04/22 Status: Ordered QUEtiapine 25 mg oral tablet 50 mg, [...] 1 2 3 Oxygen Saturation [94-100 %] 99 % (05/04/22 2:38 PM) 99 % (05/04/22 12:32 PM) 100 % (05/04/22 11:13 AM) Pulse Rate [55-90 bpm] 94 bpm *H* (05/04/22 2:38 PM) 93 bpm *H* (05/04/22 12:32 PM) 101 bpm *H* (05/04/22 11:13 AM) Blood Pressure [90-138/55-84 mm Hg] 132/54mm Hg (05/04/22 2:38 PM) 132/54mm Hg (05/04/22 12:32 PM) 145/53mm Hg *H* (05/04/22 11:13 AM) Respiratory Rate [16-30 br/min] 18 br/min (05/04/22 2:38 PM) 17 br/min (05/04/22 12:32 PM) 19 br/min (05/04/22 11:13 AM) Temperature [96.8-100.4 DegF] 97.7 DegF (05/04/22 10:51 AM) Liters per Minute 0 L/min (05/04/22 10:51 AM) Mode of Delivery (Oxygen) Room air (05/04/22 2:38 PM) Room air (05/04/22 12:32 PM) Room air (05/04/22 11:13 AM) Blood pressure sites Arm, left (05/04/22 10:51 AM) Temperature Route Oral (05/04/22 10:51 AM)
--- NOTE | 2023-09-17 15:45 | HO.PM.IMCN ---
History of Present Illness Data of Consult Service Date: 09/17/23 Requesting physician: Cristopher Santamaria Primary Care Provider: Unknown Physician HPI Reason for consult: medical h&p 23-year-old male with history of mild intermittent asthma, schizophrenia, and atopic dermatitis is noted to psychiatry consult placed hospital service for medical H and P. Patient admitted from [facility] ED. The ED records reviewed. Hematology studies unremarkable. Renal function and electrolyte levels normal. TSH 1.04. U tox negative except for cannabinoids. Negative for COVID-19, influenza, RSV. The patient has no complaints at this time. No acute medical issues. Denies any alcohol use. Reports smoking 1/2 pack of cigarettes on a daily basis. He does smoke marijuana but denies any illicit drug use. Review of Systems Review of Systems: General: No fevers, malaise, unintentional weight loss HEENT: No blurred vision, diplopia. No sore throat, nasal congestion, rhinorrhea, sinus pain, ear pain Cardiovascular: No chest pain, palpitations, or leg edema Respiratory: No shortness of breath, wheezing, cough GI: No abdominal pain, nausea, vomiting, diarrhea, constipation, melena, hematochezia : No dysuria, hematuria, increased urinary frequency, decreased urinary output MSK: No myalgia, back pain Neuro: No headaches, weakness, paresthesias Skin: +rash PMFSH Medical History Asthma Eczema Routine medical exam Social History Household Members: Family Housing: House Do you presently have visiting nurse or other home services: No Patient Tobacco Use Status: Current everyday Tobacco user Tobacco use type: Cigarette Cigarette Packs Per Day: 0.5 Cigarettes Per Day: 10.0 e-Cigarette/Vaping Use: Never Used Second Hand Smoke Exposure: Yes Substance Use Type: Marijuana Advance Directives: No service: No Sexual orientation: Don't Know Meds Allergies Allergy/AdvReac Type Severity Reaction Status Date / Time No Known Allergies Allergy Unverified 08/11/20 19:05 [No Known Allergies*] Active Medications: Current Medications Acetaminophen (Acetaminophen 325 Mg Tablet) 650 mg PO Q6H PRN PRN Reason: Headache/Pain Mild Scale (1-3) Al Hydroxide/Mg Hydroxide (Magnesium Hydrox/Alum Hydrox 30 Ml Oral.Susp) 30 ml PO Q6H PRN PRN Reason: Heartburn/Nausea Hydroxyzine HCl (Hydroxyzine Hcl 25 Mg Tablet) 25 mg PO Q6H PRN PRN Reason: Anxiety Magnesium Hydroxide (Milk Of Magnesia 30 Ml Oral.Susp) 30 ml PO DAILY PRN PRN Reason: Constipation Nicotine Polacrilex (Nicotine Polacrilex 2 Mg Gum) 4 mg BUCCAL Q2H PRN PRN Reason: Nicotine Cravings Trazodone HCl (Trazodone Hcl 50 Mg Tablet) 50 mg PO BEDTIME MRX1 PRN PRN Reason: Insomnia Physical Exam Vital Signs and Narrative: Constitutional - Awake and Alert, No apparent distress Eyes - PERRLA, EOMI Cardiovascular - S1S2, RRR, No edema Respiratory - Normal lung expansion, Normal respiratory effort, No respiratory distress, CTA bilaterally Gastrointestinal - NT / ND; +BS; No rebound or guarding Extremities - no calf tenderness bilaterally, no swelling Musculoskeletal - Normal inspection, normal ROM Skin - Warm/Dry. Diffuse dry, eczematous patches covering the upper and lower extremities as well as face and upper back Neurological - Alert & oriented x3, CN II-XII in tact, 5/5 strength BUE and BLE Psychological - Appropriate affect Assessment and Plan (1) Routine medical exam: Status: Acute Plan 23-year-old male with history of mild intermittent asthma, schizophrenia, and atopic dermatitis is noted to psychiatry consult [facility] service for medical H and P. #Schizophrenia -plan per Psychiatry # mild intermittent asthma -albuterol p.r.n. No acute exacerbation # severe atopic dermatitis -Eucerin by daily -patient not keen on treatment but will add triamcinolone daily p.r.n. should he choose to use this -recommend outpatient follow-up with Dermatology # nicotine dependence -smoking cessation counseling -nicotine patch, gum prn Thank you for allowing me to participate in this consult. Signing off at this time. Please do not hesitate to call for further questions. Time Spent With Patient Time: Total time managing care of this patient today ____ minutes.
[2023-09-17 16:36] VITALS: BP 143/65; PULSE 77; RESP 18; TEMP 36.2; O2SAT 100
[2023-09-17 16:37] VITALS: BMI 26.2
--- NOTE | 2023-09-17 17:11 | PC.ADMIT ---
Cesar arrived to the unit at 1535, he signed a conditional voluntary, Sharps check done by speech writer and male MHC, skin appears dry, with dry scabs, patient reports history of eczema/atopic dermatitis. When asked how he felt stated I don't know he reported endorsing depression rated it a 5/10. He denied feeling anxious, denied suicidal ideation, he did report homicidal ideation, when asked to elaborate stated My father and I don't want to see him. He reports auditory hallucinations describes it as Single words when asked to elaborate stated I was at the gym and I heard crepe he reports staring at an old man for about a minute I was going to fuck him up. He reports leaving the gym and then hearing another voice It called me a faget, reports he looked back and didn't see anyone. He reports he hasn't taken Haldol in over a year after being diagnosed with Schizophrenia. He reports feeling On edge.
[2023-09-17] MEDS: hydrOXYzine HCL 25 MG TABLET PO (18:35)
[2023-09-17 19:45] VITALS: BP 140/62; PULSE 77; RESP 16; TEMP 36.3; O2SAT 100
[2023-09-17] MEDS: QUEtiapine Fumarate 50 MG TABLET PO (20:53)
[2023-09-17] MEDS: traZODone HCL 50 MG TABLET PO (20:53)
[2023-09-18] MEDS: Nicotine Polacrilex 2 MG GUM 4 MG BUCCAL ×3 (06:04→21:23)
[2023-09-18] MEDS: Triamcinolone Acet 0.1 % Cream 15 GM TUBE 1 APPL TOPICAL (06:15)
[2023-09-18 07:05] VITALS: BP 130/61; PULSE 96; RESP 18; TEMP 36.4; O2SAT 98
[2023-09-18] MEDS: hydrOXYzine HCL 25 MG TABLET PO (08:50)
[2023-09-18 09:15] LABS: MANUAL DIFF FLAG NO
[2023-09-18 09:19] LABS: Basophils Absolute Auto 0.1 X10*3/uL (0.0-0.2); Basophils Percent Auto 0.8 % (0-2); Eosinophils Percent Auto 12.4 % (0-4); Hematocrit 42.3 % (42.0-52.0); Hemoglobin 14.5 g/dl (14.0-18.0); Imm Gran Abs Auto 0.02 X10*3/uL (0.00-0.03); Imm Gran Pct Auto 0.3 % (0.0-0.4); Lymphocytes Percent Auto 25.6 % (20-40); Mean Corpuscular HGB Conc 34.3 g/dl (31.0-36.0); Mean Corpuscular Hemoglobin 30.3 pg (27.0-33.0); Mean Corpuscular Volume 88.5 fL (80.0-98.0); Mean Platelet Volume 9.9 fL (9.4-12.4); Monocytes Absolute Auto 0.5 X10*3/uL (0.1-1.2); Monocytes Percent Auto 6.4 % (2-11); Neutrophils Absolute Auto 4.2 x10*3/uL (2.0-8.3); Neutrophils Percent Auto 54.5 % (45-73); Platelet Count 294 X10*3/uL (160-400); Red Blood Count 4.78 X10*6/uL (4.60-5.80); Red Cell Distribution Width 13.2 % (11.0-16.0); White Blood Count 7.7 X10*3/uL (4.8-10.8)
[2023-09-18 09:33] LABS: Estimated Average Glucose 97 mg/dL
[2023-09-18 09:46] LABS: Alanine Aminotransferase 35 U/L (0-40); Albumin Level 4.2 g/dL (3.5-5.0); Alkaline Phosphatase 69 U/L (39-117); Anion Gap 12 (12-20); Aspartate Amino Transferase 27 U/L (5-37); Bilirubin Direct < 0.2 mg/dL (0.0-0.5); Bilirubin Total 0.2 mg/dL (0.0-1.0); Blood Urea Nitrogen 11 mg/dL (9-16); Calcium 9.6 mg/dL (8.4-10.2); Carbon Dioxide 25 mmol/L (22-29); Chloride 104 mmol/L (96-108); Cholesterol 152 mg/dL (<200); Creatinine Clr Calc Pharmacy 152.4; Estimated Glomerular Filt Rate > 60; Glucose Fasting 65 mg/dL (60-99); HDL Cholesterol 50 mg/dL (>40); LDL Cholesterol Calculated 75 mg/dL (<100); Potassium 4.2 mmol/L (3.3-5.1); Sodium 137 mmol/L (135-145); Total Protein 7.5 g/dL (6.5-8.0); Triglycerides 138 mg/dL (<150)
[2023-09-18 10:00] LABS: Free T4 (Free Thyroxine) 0.94 ng/dL (0.71-1.85); Thyroid Stimulating Hormone 0.93 uIU/mL (0.32-4.0)
[2023-09-18 10:14] LABS: Folate 10.3 ng/mL (> or = 4.0); Vitamin B12 544 pg/mL (200-900)
--- NOTE | 2023-09-18 13:10 | PC.NURSE ---
Cesar was offered the Flu vaccine he stated No I don't want it, I think I had it a month ago.
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
[2023-09-18 20:12] VITALS: BP 165/71; PULSE 68; RESP 18; TEMP 36.7; O2SAT 100
[2023-09-18] MEDS: QUEtiapine Fumarate 100 MG TABLET PO (20:50)
[2023-09-18] MEDS: Mineral Oil/Petrolatum,White 106 GM Tube 1 APPL TOPICAL (20:50)
[2023-09-19 07:06] VITALS: BP 124/55; PULSE 86; RESP 18; TEMP 36.7; O2SAT 100
[2023-09-19 09:32] VITALS: BMI 26.9
[2023-09-19] MEDS: hydrOXYzine HCL 50 MG TABLET PO (15:54)
--- NOTE | 2023-09-19 16:21 | P.PNPSI_ITS ---
Subjective Subjective Date of Service: 09/19/23 Reason For Visit: Schizophrenia Interim History: calm, cooperative. not feeling as explosive here. slept well. wants to continue medications as prescribed. per staff, slepy most of the day yesteday. denies anx/dep, did ask for hydroxyzine. slept well. Mental Status Exam Mental Status Exam Narrative: eczematous, appropriately dressed and groomed. cooperative. no PMA/PMR. speech nml amount, rate, loudness, latency. thoughts organized. affect flexible. no SI/HI/AVH expressed. Diagnostics Vital Signs (24Hr): Vital Signs - 24 hr 09/18/23 20:12 09/19/23 07:06 Temperature 98.1 F 98.0 F Pulse Rate 68 86 Respiratory Rate 18 18 Blood Pressure 165/71 H 124/55 L Pulse Oximetry 100 100 Oxygen Delivery Method Room Air Room Air BMI result Body Mass Index 26.9 Labs 09/18/23 08:42 09/18/23 08:42 Labs: Laboratory Results - last 48 hr 09/18/23 08:42 WBC 7.7 RBC 4.78 Hgb 14.5 Hct 42.3 MCV 88.5 MCH 30.3 MCHC 34.3 RDW 13.2 Plt Count 294 MPV 9.9 Immature Gran % (Auto) 0.3 Neut % (Auto) 54.5 Lymph % (Auto) 25.6 [place] % (Auto) 6.4 Eos % (Auto) 12.4 H Baso % (Auto) 0.8 Lymph # (Auto) 2.0 [place] # (Auto) 0.5 Eos # (Auto) 1.0 H Baso # (Auto) 0.1 Abs Immat Gran (auto) 0.02 Absolute Neuts (auto) 4.2 Absolute Nucleated RBC 0.000 Nucleated RBC % (auto) 0.0 Sodium 137 Potassium 4.2 Chloride 104 Carbon Dioxide 25 Anion Gap 12 BUN 11 Creatinine 0.82 Estim Creat Clear Calc 152.4 Estimated GFR > 60 Fasting Glucose 65 Estimat Average Glucose 97 Hemoglobin A1c % 5.0 Calcium 9.6 Total Bilirubin 0.2 Direct Bilirubin < 0.2 AST 27 ALT 35 Alkaline Phosphatase 69 Total Protein 7.5 Albumin 4.2 Triglycerides 138 Cholesterol 152 LDL Cholesterol, Calc 75 HDL Cholesterol 50 Vitamin B12 544 Folate 10.3 TSH 0.93 Free T4 0.94 Medications Medications Current Medications Acetaminophen (Acetaminophen 325 Mg Tablet) 650 mg PO Q6H PRN PRN Reason: Headache/Pain Mild Scale (1-3) Al Hydroxide/Mg Hydroxide (Magnesium Hydrox/Alum Hydrox 30 Ml Oral.Susp) 30 ml PO Q6H PRN PRN Reason: Heartburn/Nausea Hydroxyzine HCl (Hydroxyzine Hcl 50 Mg Tablet) 50 mg PO Q6H PRN PRN Reason: Anxiety Last Admin: 09/19/23 15:54 Dose: 50 mg Magnesium Hydroxide (Milk Of Magnesia 30 Ml Oral.Susp) 30 ml PO DAILY PRN PRN Reason: Constipation Multi-Ingred Cream/Lotion/Oil/Oint (Mineral Oil/Petrolatum,White 106 Gm Tube) 1 appl TOPICAL BID KRISTY; Protocol Last Admin: 09/19/23 08:29 Dose: Not Given Nicotine (Nicotine 21 Mg Patch.Td24) 21 mg TRANSDERMA DAILY KRISTY Last Admin: 09/19/23 08:29 Dose: Not Given Nicotine Polacrilex (Nicotine Polacrilex 2 Mg Gum) 4 mg BUCCAL Q2H PRN PRN Reason: Nicotine Cravings Last Admin: 09/18/23 21:23 Dose: 4 mg Quetiapine Fumarate (Quetiapine Fumarate 25 Mg Tablet) 25 mg PO Q6H PRN PRN Reason: Anxiety Quetiapine Fumarate (Quetiapine Fumarate 100 Mg Tablet) 100 mg PO BEDTIME KRISTY Last Admin: 09/18/23 20:50 Dose: 100 mg Quetiapine Fumarate (Quetiapine Fumarate 50 Mg Tablet) 50 mg PO BEDTIME PRN PRN Reason: insomnia Triamcinolone Acetonide (Triamcinolone Acet 0.1 % Cream 15 Gm Tube) 1 appl TOPICAL DAILY KRISTY; Protocol Last Admin: 09/19/23 08:29 Dose: Not Given Allergies Allergies Allergy/AdvReac Type Severity Reaction Status Date / Time No Known Allergies Allergy Unverified 08/11/20 19:05 [No Known Allergies*] Assessment & Plan Assessment & Plan (1) Schizophrenia, paranoid type: Status: Acute Code(s): F20.0 - Paranoid schizophrenia (2) Eczema: Status: Acute Code(s): L30.9 - Dermatitis, unspecified Plan 09/18: start seroquel 100 mg QHS with repeat of 50. 09/19: slept well on seroquel 100. declines to modify dosing. states he feels less explosive here. seems difficult for him to hear Dx of psychosis. Reason for continued inpatient stay Substantial Risk for: harm to self, harm to others, inability to function and rapid decompensation Time Spent With Patient Time: Total time managing care of this patient today __25__ minutes.
[2023-09-19 19:45] VITALS: BP 137/58; PULSE 74; RESP 16; TEMP 36.6; O2SAT 98
[2023-09-19] MEDS: QUEtiapine Fumarate 25 MG TABLET PO (21:23)
[2023-09-19] MEDS: QUEtiapine Fumarate 100 MG TABLET PO (21:23)
[2023-09-20 08:04] VITALS: BP 128/69; PULSE 84; TEMP 36.6; O2SAT 100
[2023-09-20] MEDS: Mineral Oil/Petrolatum,White 106 GM Tube 1 APPL TOPICAL (08:20)
[2023-09-20] MEDS: Triamcinolone Acet 0.1 % Cream 15 GM TUBE 1 APPL TOPICAL (08:21)
[2023-09-20] MEDS: QUEtiapine Fumarate 25 MG TABLET PO (13:27)
--- NOTE | 2023-09-20 14:27 | HO.PSYCHPN ---
Subjective Subjective Date of Service: 09/20/23 Reason For Visit: Schizophrenia Interim History: calm, cooperative. reports slept well. anger/irritability is gone, attributes that to restful sleep. asks to increase HS seroquel to 125 from 100 mg as he had 125 last night. planning to discharge early/mid next week, . per staff, feeling good. feeling no anger. no RIS. denies psychosis. had seorquel PRN as well as scheduled last NOC. Mental Status Exam Mental Status Exam Narrative: eczematous, appropriately dressed and groomed. cooperative. no PMA/PMR. speech nml amount, rate, loudness, latency. thoughts organized. mood not angry/irritable. affect flexible. no SI/HI/AVH expressed. Diagnostics Vital Signs (24Hr): Vital Signs - 24 hr 09/19/23 19:45 09/20/23 08:04 Temperature 98 F 97.8 F Pulse Rate 74 84 Respiratory Rate 16 Blood Pressure 137/58 L 128/69 Pulse Oximetry 98 100 Oxygen Delivery Method Room Air Room Air BMI result Body Mass Index 26.9 Labs 09/18/23 08:42 09/18/23 08:42 Medications Medications Current Medications Acetaminophen (Acetaminophen 325 Mg Tablet) 650 mg PO Q6H PRN PRN Reason: Headache/Pain Mild Scale (1-3) Al Hydroxide/Mg Hydroxide (Magnesium Hydrox/Alum Hydrox 30 Ml Oral.Susp) 30 ml PO Q6H PRN PRN Reason: Heartburn/Nausea Hydroxyzine HCl (Hydroxyzine Hcl 50 Mg Tablet) 50 mg PO Q6H PRN PRN Reason: Anxiety Last Admin: 09/19/23 15:54 Dose: 50 mg Magnesium Hydroxide (Milk Of Magnesia 30 Ml Oral.Susp) 30 ml PO DAILY PRN PRN Reason: Constipation Multi-Ingred Cream/Lotion/Oil/Oint (Mineral Oil/Petrolatum,White 106 Gm Tube) 1 appl TOPICAL BID KRISTY; Protocol Last Admin: 09/20/23 08:20 Dose: 1 appl Nicotine (Nicotine 21 Mg Patch.Td24) 21 mg TRANSDERMA DAILY KRISTY Last Admin: 09/20/23 07:59 Dose: Not Given Nicotine Polacrilex (Nicotine Polacrilex 2 Mg Gum) 4 mg BUCCAL Q2H PRN PRN Reason: Nicotine Cravings Last Admin: 09/18/23 21:23 Dose: 4 mg Quetiapine Fumarate (Quetiapine Fumarate 50 Mg Tablet) 50 mg PO BEDTIME PRN PRN Reason: insomnia Quetiapine Fumarate (Quetiapine Fumarate 25 Mg Tablet) 25 mg PO Q4H PRN PRN Reason: Anxiety Last Admin: 09/20/23 13:27 Dose: 25 mg Quetiapine Fumarate (Quetiapine Fumarate 25 Mg Tablet) 125 mg PO BEDTIME KRISTY Triamcinolone Acetonide (Triamcinolone Acet 0.1 % Cream 15 Gm Tube) 1 appl TOPICAL DAILY KRISTY; Protocol Last Admin: 09/20/23 08:21 Dose: 1 appl Allergies Allergies Allergy/AdvReac Type Severity Reaction Status Date / Time No Known Allergies Allergy Unverified 08/11/20 19:05 [No Known Allergies*] Assessment & Plan Assessment & Plan (1) Schizophrenia, paranoid type: Status: Acute Code(s): F20.0 - Paranoid schizophrenia (2) Eczema: Status: Acute Code(s): L30.9 - Dermatitis, unspecified Plan 09/18: start seroquel 100 mg QHS with repeat of 50. 09/19: slept well on seroquel 100. declines to modify dosing. states he feels less explosive here. seems difficult for him to hear Dx of psychosis. 09/20: increase HS seroquel to 125 mg. anger/irritability completely resolved. planning to F/U outpt and DC next . Reason for continued inpatient stay Substantial Risk for: inability to function and rapid decompensation Time Spent With Patient Time: Total time managing care of this patient today __25__ minutes.
[2023-09-20] MEDS: Nicotine Polacrilex 2 MG GUM 4 MG BUCCAL (14:28)
[2023-09-20 18:00] VITALS: BP 147/69; PULSE 96; RESP 18; TEMP 36.9; O2SAT 96
[2023-09-20] MEDS: QUEtiapine Fumarate 25 MG TABLET 125 MG PO (21:07)
[2023-09-21] MEDS: Mineral Oil/Petrolatum,White 106 GM Tube 1 APPL TOPICAL ×2 (06:16→20:37)
[2023-09-21] MEDS: Triamcinolone Acet 0.1 % Cream 15 GM TUBE 1 APPL TOPICAL (06:17)
[2023-09-21] MEDS: QUEtiapine Fumarate 25 MG TABLET PO (07:18)
[2023-09-21 08:00] VITALS: BP 138/78; PULSE 109; RESP 16; TEMP 36.8; O2SAT 99
--- NOTE | 2023-09-21 10:28 | HO.PSYCHPN ---
Subjective Subjective Date of Service: 09/21/23 Reason For Visit: Schizophrenia Subjective Notes: Conditional Voluntary Interim History: Patient was seen and discussed in rounds today. Records and plans were reviewed. He continues to be withdrawn, isolative with some social interactions. Reading a lot. Eating and sleeping adequately. No complaints or side effects. No changes were made today Medication Compliance: Yes Side effects from medications: No Attending Groups: Yes Review of Systems Review of Systems Yes all other systems are reviewed and are negative Mental Status Exam Mental Status Exam Narrative: In today's visit he is alert, oriented and pleasant. Normal speech. Moderate eye contact. Appropriate affect. No signs of psychosis. No SI. Cognitively is intact. Judgment is intact. Diagnostics Vital Signs (24Hr): Vital Signs - 24 hr 09/20/23 18:00 Temperature 98.5 F Pulse Rate 96 Respiratory Rate 18 Blood Pressure 147/69 H Pulse Oximetry 96 Oxygen Delivery Method Room Air BMI result Body Mass Index 26.9 Labs 09/18/23 08:42 09/18/23 08:42 Medications Medications Current Medications Acetaminophen (Acetaminophen 325 Mg Tablet) 650 mg PO Q6H PRN PRN Reason: Headache/Pain Mild Scale (1-3) Al Hydroxide/Mg Hydroxide (Magnesium Hydrox/Alum Hydrox 30 Ml Oral.Susp) 30 ml PO Q6H PRN PRN Reason: Heartburn/Nausea Hydroxyzine HCl (Hydroxyzine Hcl 50 Mg Tablet) 50 mg PO Q6H PRN PRN Reason: Anxiety Last Admin: 09/19/23 15:54 Dose: 50 mg Magnesium Hydroxide (Milk Of Magnesia 30 Ml Oral.Susp) 30 ml PO DAILY PRN PRN Reason: Constipation Multi-Ingred Cream/Lotion/Oil/Oint (Mineral Oil/Petrolatum,White 106 Gm Tube) 1 appl TOPICAL BID KRISTY; Protocol Last Admin: 09/21/23 06:16 Dose: 1 appl Nicotine (Nicotine 21 Mg Patch.Td24) 21 mg TRANSDERMA DAILY KRISTY Last Admin: 09/21/23 08:39 Dose: Not Given Nicotine Polacrilex (Nicotine Polacrilex 2 Mg Gum) 4 mg BUCCAL Q2H PRN PRN Reason: Nicotine Cravings Last Admin: 09/20/23 14:28 Dose: 4 mg Quetiapine Fumarate (Quetiapine Fumarate 50 Mg Tablet) 50 mg PO BEDTIME PRN PRN Reason: insomnia Quetiapine Fumarate (Quetiapine Fumarate 25 Mg Tablet) 25 mg PO Q4H PRN PRN Reason: Anxiety Last Admin: 09/21/23 07:18 Dose: 25 mg Quetiapine Fumarate (Quetiapine Fumarate 25 Mg Tablet) 125 mg PO BEDTIME KRISTY Last Admin: 09/20/23 21:07 Dose: 125 mg Triamcinolone Acetonide (Triamcinolone Acet 0.1 % Cream 15 Gm Tube) 1 appl TOPICAL DAILY KRISTY; Protocol Last Admin: 09/21/23 06:17 Dose: 1 appl Allergies Allergies Allergy/AdvReac Type Severity Reaction Status Date / Time No Known Allergies Allergy Unverified 08/11/20 19:05 [No Known Allergies*] Assessment & Plan Assessment & Plan (1) Schizophrenia, paranoid type: Status: Acute Code(s): F20.0 - Paranoid schizophrenia (2) Eczema: Status: Acute Code(s): L30.9 - Dermatitis, unspecified Plan 09/18: start seroquel 100 mg QHS with repeat of 50. 09/19: slept well on seroquel 100. declines to modify dosing. states he feels less explosive here. seems difficult for him to hear Dx of psychosis. 09/20: increase HS seroquel to 125 mg. anger/irritability completely resolved. planning to F/U outpt and DC next . 09/21: Continue current regimen and plans Reason for continued inpatient stay Substantial Risk for: med/psych decompensation Time Spent With Patient Time: Total time managing care of this patient today ____ minutes.
[2023-09-21 19:15] VITALS: BP 142/64; PULSE 84; RESP 14; TEMP 36.3; O2SAT 98
[2023-09-21] MEDS: QUEtiapine Fumarate 25 MG TABLET 125 MG PO (20:37)
--- NOTE | 2023-09-22 07:59 | HO.PSYCHPN ---
Subjective Subjective Date of Service: 09/22/23 Reason For Visit: Schizophrenia Subjective Notes: Conditional Voluntary Interim History: Patient was seen and discussed in rounds today. Records and plans were reviewed. He has been doing well. He is pleasant, cooperative. Medication compliant. Still somewhat avoidant of interactions. He does interact selectively. Eating and sleeping adequately. No complaints or side effects. No safety concerns Medication Compliance: Yes Side effects from medications: No Attending Groups: Yes Review of Systems Review of Systems Yes all other systems are reviewed and are negative Mental Status Exam Mental Status Exam Narrative: In today's visit he is alert, oriented and pleasant. Normal speech. No eye contact. Appropriate affect/constricted. No signs of psychosis. No delusions. No SI. Cognitively is intact. Judgment is intact. Diagnostics Vital Signs (24Hr): Vital Signs - 24 hr 09/21/23 08:00 09/21/23 19:15 Temperature 98.2 F 97.4 F Pulse Rate 109 H 84 Respiratory Rate 16 14 Blood Pressure 138/78 142/64 H Pulse Oximetry 99 98 Oxygen Delivery Method Room Air Room Air BMI result Body Mass Index 26.9 Labs 09/18/23 08:42 09/18/23 08:42 Medications Medications Current Medications Acetaminophen (Acetaminophen 325 Mg Tablet) 650 mg PO Q6H PRN PRN Reason: Headache/Pain Mild Scale (1-3) Al Hydroxide/Mg Hydroxide (Magnesium Hydrox/Alum Hydrox 30 Ml Oral.Susp) 30 ml PO Q6H PRN PRN Reason: Heartburn/Nausea Hydroxyzine HCl (Hydroxyzine Hcl 50 Mg Tablet) 50 mg PO Q6H PRN PRN Reason: Anxiety Last Admin: 09/19/23 15:54 Dose: 50 mg Magnesium Hydroxide (Milk Of Magnesia 30 Ml Oral.Susp) 30 ml PO DAILY PRN PRN Reason: Constipation Multi-Ingred Cream/Lotion/Oil/Oint (Mineral Oil/Petrolatum,White 106 Gm Tube) 1 appl TOPICAL BID KRISTY; Protocol Last Admin: 09/21/23 20:37 Dose: 1 appl Nicotine (Nicotine 21 Mg Patch.Td24) 21 mg TRANSDERMA DAILY KRISTY Last Admin: 09/21/23 08:39 Dose: Not Given Nicotine Polacrilex (Nicotine Polacrilex 2 Mg Gum) 4 mg BUCCAL Q2H PRN PRN Reason: Nicotine Cravings Last Admin: 09/20/23 14:28 Dose: 4 mg Quetiapine Fumarate (Quetiapine Fumarate 50 Mg Tablet) 50 mg PO BEDTIME PRN PRN Reason: insomnia Quetiapine Fumarate (Quetiapine Fumarate 25 Mg Tablet) 25 mg PO Q4H PRN PRN Reason: Anxiety Last Admin: 09/21/23 07:18 Dose: 25 mg Quetiapine Fumarate (Quetiapine Fumarate 25 Mg Tablet) 125 mg PO BEDTIME KRISTY Last Admin: 09/21/23 20:37 Dose: 125 mg Triamcinolone Acetonide (Triamcinolone Acet 0.1 % Cream 15 Gm Tube) 1 appl TOPICAL DAILY KRISTY; Protocol Last Admin: 09/21/23 06:17 Dose: 1 appl Allergies Allergies Allergy/AdvReac Type Severity Reaction Status Date / Time No Known Allergies Allergy Unverified 08/11/20 19:05 [No Known Allergies*] Assessment & Plan Assessment & Plan (1) Schizophrenia, paranoid type: Status: Acute Code(s): F20.0 - Paranoid schizophrenia (2) Eczema: Status: Acute Code(s): L30.9 - Dermatitis, unspecified Plan 09/18: start seroquel 100 mg QHS with repeat of 50. 09/19: slept well on seroquel 100. declines to modify dosing. states he feels less explosive here. seems difficult for him to hear Dx of psychosis. 09/20: increase HS seroquel to 125 mg. anger/irritability completely resolved. planning to F/U outpt and DC next . 09/21: Continue current regimen and plans 09/22: Continue current regimen and plans Reason for continued inpatient stay Substantial Risk for: med/psych decompensation Time Spent With Patient Time: Total time managing care of this patient today ____ minutes.
[2023-09-22 09:00] VITALS: BP 128/61; PULSE 78; RESP 16; TEMP 36.7; O2SAT 96
[2023-09-22] MEDS: Milk of Magnesia 30 ML ORAL.SUSP PO (18:49)
[2023-09-22] MEDS: QUEtiapine Fumarate 25 MG TABLET PO (18:50)
[2023-09-22 20:15] VITALS: BP 140/81; PULSE 81; TEMP 36.8; O2SAT 100
[2023-09-22] MEDS: QUEtiapine Fumarate 25 MG TABLET 125 MG PO (20:17)
[2023-09-22] MEDS: Nicotine Polacrilex 2 MG GUM 4 MG BUCCAL (20:18)
[2023-09-23] MEDS: Mineral Oil/Petrolatum,White 106 GM Tube 1 APPL TOPICAL (06:23)
[2023-09-23] MEDS: Triamcinolone Acet 0.1 % Cream 15 GM TUBE 1 APPL TOPICAL (06:23)
--- NOTE | 2023-09-23 06:25 | PC.NURSE ---
given dermacerin and kenalog at this time as he would like to take a shower.
[2023-09-23 07:00] VITALS: BP 136/66; PULSE 103; TEMP 36.4; O2SAT 97
[2023-09-23] MEDS: Acetaminophen 325 MG TABLET 650 MG PO (10:10)
[2023-09-23] MEDS: QUEtiapine Fumarate 25 MG TABLET PO (13:56)
--- NOTE | 2023-09-23 15:41 | HO.PSYCHPN ---
Subjective Subjective Date of Service: 09/23/23 Reason For Visit: Schizophrenia Interim History: calm, cooperative. some disrupted sleep. agreeable to increase seroquel to 150 mg at HS. planning for discharge. per staff, interacting. peasanbt, visible, social. saturday active, + groups. declined nicotine patch and creams in the morning. good appetite, appears to be sleeping well. AH come and go. Mental Status Exam Mental Status Exam Narrative: skin appears normal, appropriately dressed and groomed. cooperative. no PMA/PMR. speech nml amount, rate, loudness, latency. thoughts organized. mood not angry/irritable. affect flexible. no SI/HI/AVH expressed. Diagnostics Vital Signs (24Hr): Vital Signs - 24 hr 09/22/23 20:15 09/23/23 07:00 Temperature 98.3 F 97.5 F Pulse Rate 81 103 H Blood Pressure 140/81 H 136/66 Pulse Oximetry 100 97 Oxygen Delivery Method Room Air Room Air BMI result Body Mass Index 26.9 Labs 09/18/23 08:42 09/18/23 08:42 Medications Medications Current Medications Acetaminophen (Acetaminophen 325 Mg Tablet) 650 mg PO Q6H PRN PRN Reason: Headache/Pain Mild Scale (1-3) Last Admin: 09/23/23 10:10 Dose: 650 mg Al Hydroxide/Mg Hydroxide (Magnesium Hydrox/Alum Hydrox 30 Ml Oral.Susp) 30 ml PO Q6H PRN PRN Reason: Heartburn/Nausea Hydroxyzine HCl (Hydroxyzine Hcl 50 Mg Tablet) 50 mg PO Q6H PRN PRN Reason: Anxiety Last Admin: 09/19/23 15:54 Dose: 50 mg Magnesium Hydroxide (Milk Of Magnesia 30 Ml Oral.Susp) 30 ml PO DAILY PRN PRN Reason: Constipation Last Admin: 09/22/23 18:49 Dose: 30 ml Multi-Ingred Cream/Lotion/Oil/Oint (Mineral Oil/Petrolatum,White 106 Gm Tube) 1 appl TOPICAL BID KRISTY; Protocol Last Admin: 09/23/23 06:23 Dose: 1 appl Nicotine (Nicotine 21 Mg Patch.Td24) 21 mg TRANSDERMA DAILY KRISTY Last Admin: 09/23/23 08:19 Dose: Not Given Nicotine Polacrilex (Nicotine Polacrilex 2 Mg Gum) 4 mg BUCCAL Q2H PRN PRN Reason: Nicotine Cravings Last Admin: 09/22/23 20:18 Dose: 4 mg Quetiapine Fumarate (Quetiapine Fumarate 50 Mg Tablet) 50 mg PO BEDTIME PRN PRN Reason: insomnia Quetiapine Fumarate (Quetiapine Fumarate 25 Mg Tablet) 25 mg PO Q4H PRN PRN Reason: Anxiety Last Admin: 09/23/23 13:56 Dose: 25 mg Quetiapine Fumarate (Quetiapine Fumarate 100 Mg Tablet) 150 mg PO BEDTIME KRISTY Triamcinolone Acetonide (Triamcinolone Acet 0.1 % Cream 15 Gm Tube) 1 appl TOPICAL DAILY KRISTY; Protocol Last Admin: 09/23/23 06:23 Dose: 1 appl Allergies Allergies Allergy/AdvReac Type Severity Reaction Status Date / Time No Known Allergies Allergy Unverified 08/11/20 19:05 [No Known Allergies*] Assessment & Plan Assessment & Plan (1) Schizophrenia, paranoid type: Status: Acute Code(s): F20.0 - Paranoid schizophrenia (2) Eczema: Status: Acute Code(s): L30.9 - Dermatitis, unspecified Plan 09/18: start seroquel 100 mg QHS with repeat of 50. 09/19: slept well on seroquel 100. declines to modify dosing. states he feels less explosive here. seems difficult for him to hear Dx of psychosis. 09/20: increase HS seroquel to 125 mg. anger/irritability completely resolved. planning to F/U outpt and DC next . 09/21: Continue current regimen and plans 09/22: Continue current regimen and plans 09/23: increase HS seroquel to 150 mg. otherwise continue current mgmt. discharge saturday. Reason for continued inpatient stay Substantial Risk for: harm to others, inability to function and rapid decompensation Time Spent With Patient Time: Total time managing care of this patient today __25__ minutes.
[2023-09-23] MEDS: QUEtiapine Fumarate 50 MG TABLET 150 MG PO (21:14)
[2023-09-23 21:16] VITALS: BP 133/60; PULSE 77; TEMP 36.3; O2SAT 100
[2023-09-24] MEDS: Acetaminophen 325 MG TABLET 650 MG PO (04:35)
[2023-09-24] MEDS: Triamcinolone Acet 0.1 % Cream 15 GM TUBE 1 APPL TOPICAL (05:51)
[2023-09-24] MEDS: Mineral Oil/Petrolatum,White 106 GM Tube 1 APPL TOPICAL ×2 (05:51→20:44)
--- NOTE | 2023-09-24 05:52 | PC.NURSE ---
given triamcinolone and dermacerin at this time as he is requesting to shower.
[2023-09-24 07:25] VITALS: BP 140/80; PULSE 103; TEMP 36.3; O2SAT 99
--- NOTE | 2023-09-24 09:58 | HO.PSYCHPN ---
Subjective Subjective Date of Service: 09/24/23 Reason For Visit: Schizophrenia Subjective Notes: Conditional Voluntary Interim History: Reviewed with . Pt presents calm, cooperative and pleasant. He reports feeling pretty good today; he states he is looking forward to discharging tomorrow and plans on following up with his outpatient providers. denies SI/HI/VH/AH. Medication Compliance: Yes Side effects from medications: No Attending Groups: Yes Review of Systems Constitutional: Reports as per HPI Eyes: Reports as per HPI Reports as per HPI Cardiovascular: Reports as per HPI Respiratory: Reports as per HPI Gastrointestinal: Reports as per HPI Genitourinary: Reports as per HPI Musculoskeletal: Reports as per HPI Skin/Breast: Reports as per HPI Reports as per HPI Psychiatric: Reports as per HPI Endocrine: Reports as per HPI Hematologic/Lymphatic: Reports as per HPI Allergic/Immunologic: Reports as per HPI Mental Status Exam Mental Status Exam Narrative: Pt is alert and oriented; behavior is cooperative, friendly and calm; dressed in casual attire; mood is described as good ; eye contact appropriate; Speech is normal rate, volume and prosody and not pressured; no psychomotor agitation/retardation present; thought process is organized and goal directed; Thought content is on tx; otherwise pertinent to relevant topics and without any delusional content, paranoid ideations or grandiosity; denies SI/HI. There is no evidence of perceptual disturbance. Patients insight and judgment are fair.. Diagnostics Vital Signs (24Hr): Vital Signs - 24 hr 09/23/23 21:16 09/24/23 07:25 Temperature 97.3 F 97.3 F Pulse Rate 77 103 H Blood Pressure 133/60 140/80 H Pulse Oximetry 100 99 Oxygen Delivery Method Room Air Room Air BMI result Body Mass Index 26.9 Labs 09/18/23 08:42 09/18/23 08:42 Medications Medications Current Medications Acetaminophen (Acetaminophen 325 Mg Tablet) 650 mg PO Q6H PRN PRN Reason: Headache/Pain Mild Scale (1-3) Last Admin: 09/24/23 04:35 Dose: 650 mg Al Hydroxide/Mg Hydroxide (Magnesium Hydrox/Alum Hydrox 30 Ml Oral.Susp) 30 ml PO Q6H PRN PRN Reason: Heartburn/Nausea Hydroxyzine HCl (Hydroxyzine Hcl 50 Mg Tablet) 50 mg PO Q6H PRN PRN Reason: Anxiety Last Admin: 09/19/23 15:54 Dose: 50 mg Magnesium Hydroxide (Milk Of Magnesia 30 Ml Oral.Susp) 30 ml PO DAILY PRN PRN Reason: Constipation Last Admin: 09/22/23 18:49 Dose: 30 ml Multi-Ingred Cream/Lotion/Oil/Oint (Mineral Oil/Petrolatum,White 106 Gm Tube) 1 appl TOPICAL BID KRISTY; Protocol Last Admin: 09/24/23 05:51 Dose: 1 appl Nicotine (Nicotine 21 Mg Patch.Td24) 21 mg TRANSDERMA DAILY KRISTY Last Admin: 09/24/23 07:56 Dose: Not Given Nicotine Polacrilex (Nicotine Polacrilex 2 Mg Gum) 4 mg BUCCAL Q2H PRN PRN Reason: Nicotine Cravings Last Admin: 09/22/23 20:18 Dose: 4 mg Quetiapine Fumarate (Quetiapine Fumarate 50 Mg Tablet) 50 mg PO BEDTIME PRN PRN Reason: insomnia Quetiapine Fumarate (Quetiapine Fumarate 25 Mg Tablet) 25 mg PO Q4H PRN PRN Reason: Anxiety Last Admin: 09/23/23 13:56 Dose: 25 mg Quetiapine Fumarate (Quetiapine Fumarate 50 Mg Tablet) 150 mg PO BEDTIME KRISTY Last Admin: 09/23/23 21:14 Dose: 150 mg Triamcinolone Acetonide (Triamcinolone Acet 0.1 % Cream 15 Gm Tube) 1 appl TOPICAL DAILY KRISTY; Protocol Last Admin: 09/24/23 05:51 Dose: 1 appl Allergies Allergies Allergy/AdvReac Type Severity Reaction Status Date / Time No Known Allergies Allergy Unverified 08/11/20 19:05 [No Known Allergies*] Assessment & Plan Assessment & Plan (1) Schizophrenia, paranoid type: Status: Acute Code(s): F20.0 - Paranoid schizophrenia (2) Eczema: Status: Acute Code(s): L30.9 - Dermatitis, unspecified Plan 09/18: start seroquel 100 mg QHS with repeat of 50. 09/19: slept well on seroquel 100. declines to modify dosing. states he feels less explosive here. seems difficult for him to hear Dx of psychosis. 09/20: increase HS seroquel to 125 mg. anger/irritability completely resolved. planning to F/U outpt and DC next . 09/21: Continue current regimen and plans 09/22: Continue current regimen and plans 09/23: increase HS seroquel to 150 mg. otherwise continue current mgmt. discharge saturday. 09/24: Pt presents calm, cooperative and pleasant. He reports feeling pretty good today; he states he is looking forward to discharging tomorrow and plans on following up with his outpatient providers. denies SI/HI/VH/AH. Patient educated on: diagnosis, medication risk/benefits and therapeutic strategies Informed Consent: understands Reason for continued inpatient stay Substantial Risk for: stable for discharge Time Spent With Patient Time: Total time managing care of this patient today _30___ minutes.
[2023-09-24] MEDS: hydrOXYzine HCL 50 MG TABLET PO ×2 (13:31→20:45)
[2023-09-24 19:50] VITALS: BP 138/71; PULSE 80; RESP 16; TEMP 36.7; O2SAT 98
[2023-09-24] MEDS: QUEtiapine Fumarate 50 MG TABLET 150 MG PO (20:43)
[2023-09-25] MEDS: Acetaminophen 325 MG TABLET 650 MG PO (02:55)
[2023-09-25 06:00] VITALS: BP 137/89; PULSE 94; TEMP 36.6; O2SAT 100
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
== END 2023-09-25 11:10 | disposition home or self-care (01) | DRG 750 ==
PROVIDERS: Admitting Provider Psychiatry & Neurology Psychiatry; Visit Provider Psychiatry & Neurology Psychiatry
DX: F20.0 Paranoid schizophrenia (principal); R45.850 Homicidal ideations; F17.210 Nicotine dependence, cigarettes, uncomplicated; J45.20 Mild intermittent asthma, uncomplicated; Z71.6 Tobacco abuse counseling; L20.9 Atopic dermatitis, unspecified; Z62.810 Personal history of physical and sexual abuse in childhood; Z79.899 Other long term (current) drug therapy
CPT/HCPCS: 36415; 80053; 80061; 80076; 82607; 82746; 83036; 84439; 84443; 85025

== ENCOUNTER → 2023-09-17 15:28 | Outpatient (BNV) | payer OTHER, SELFPAY | PROVIDERS: Admitting Provider Psychiatry & Neurology Psychiatry; Visit Provider Psychiatry & Neurology Psychiatry | DX: F20.0 Paranoid schizophrenia (principal); L30.9 Dermatitis, unspecified | CPT/HCPCS: 99231; 99232 ==

== ENCOUNTER → 2023-09-17 15:28 | Outpatient (BNV) | payer OTHER, SELFPAY | PROVIDERS: Admitting Provider Psychiatry & Neurology Psychiatry; Visit Provider Psychiatry & Neurology Psychiatry | DX: F20.0 Paranoid schizophrenia (principal); L30.9 Dermatitis, unspecified | CPT/HCPCS: 99231; 99232; 99233 ==

== ENCOUNTER → 2023-09-17 15:28 | Outpatient (BNV) | payer MEDICAID, SELFPAY | PROVIDERS: Admitting Provider Psychiatry & Neurology Psychiatry; Visit Provider Physician Assistant | DX: Z00.00 Encounter for general adult medical examination without abnormal findings (principal) | CPT/HCPCS: 99222 ==